=== PATIENT | female | born 1965 | race African-American/Black ===

== ENCOUNTER 2021-06-19 13:42 | Emergency (ER) | payer MEDICAID ==
[~2021-06-19] VITALS: Ht 165.1 cm; Wt 75.0 kg
[2021-06-19] MEDS ORDERED: HYDROCODONE/ACETAMINOPHEN 5/325MG TABLET PO STA (18:11)
[2021-06-19] MEDS ORDERED: TETANUS, DIPHTHERIA, PERTUSSIS VAC/PF 0.5ML (>10YR OLD) IM ONE (18:15)
[2021-06-19 18:52] VITALS: BP 158/82
== END 2021-06-19 18:58 | disposition home or self-care (01) ==
LOC: ER 13:42
DX: M79.10 Myalgia, unspecified site (principal); R51.9 Headache, unspecified; I10 Essential (primary) hypertension; F41.9 Anxiety disorder, unspecified; F32.A Depression, unspecified; W01.0XXA Fall on same level from slipping, tripping and stumbling without subsequent striking against object, initial encounter; Y93.B1 Activity, exercise machines primarily for muscle strengthening; Y92.018 Other place in single-family (private) house as the place of occurrence of the external cause
CPT/HCPCS: 90471; 90715; 93005; 99283

== ENCOUNTER 2022-09-25 12:47 | Inpatient (IN) | payer MEDICAID ==
[~2022-09-25] VITALS: Ht 167.6 cm; Wt 69.0 kg
[2022-09-25 12:55] VITALS: BP 134/99
[2022-09-25 15:03] LABS: BASOPHILS % 0.7 % (0.0-2.0); HEMATOCRIT. 40.1 % (36.0-48.0); HEMOGLOBIN. 13.1 g/dL (12.0-16.0); LYMPHOCYTES % 33.9 % (20.0-50.0); MEAN CORPUSCULAR HEMOGLOBIN 30.1 pg (28.0-32.0); MEAN CORPUSCULAR VOLUME 92.1 fL (81.0-99.0); MEAN PLATELET VOLUME 8.6 fl (7.4-10.4); MONOCYTES % 6.8 % (2.0-8.0); NEUTROPHILS % 56.6 % (40.0-76.0); PLATELET 256 x1000/uL (130-400); RED BLOOD CELL COUNT 4.35 mill/uL (4.2-5.4)
[2022-09-25 15:07] LABS: CHLORIDE 105 mEq/L (98-107)
[2022-09-25 15:15] LABS: PARTIAL THROMBOPLASTIN TIME 30.3 sec (23.4-31.0); PROTHROMBIN TIME 10.9 sec (9.6-11.0)
[2022-09-25] MEDS ORDERED: ASPIRIN 325MG EC TABLET PO ONE (16:00)
== END 2022-09-25 18:33 | disposition left against medical advice (07) | DRG 47 ==
LOC: ER 12:47 → MICUSO 16:14 → EDBEDREQ 16:23 → EDBEDREQTM 16:23 → ER 18:40
PROVIDERS: ADMIT Internal Medicine; ATTEND Internal Medicine
DX: G45.9 Transient cerebral ischemic attack, unspecified (principal); F32.A Depression, unspecified; Z53.29 Procedure and treatment not carried out because of patient's decision for other reasons; F41.9 Anxiety disorder, unspecified; I10 Essential (primary) hypertension; R29.700 NIHSS score 0
CPT/HCPCS: 36415; 71045; 80053; 83880; 84484; 85025; 86850; 86900; 93005; 99285